=== PATIENT | female | born 1985 | race Caucasian/White ===

== ENCOUNTER 2017-04-11 21:10 | Emergency (ER) | payer BC, OTHER ==
[~2017-04-11] VITALS: Ht 160 cm; Wt 68.0 kg
[~2017-04-11 21:10] MED LIST: PRENAT PO
[2017-04-11 21:14] VITALS: Ht 160 cm; Wt 68.0 kg
[2017-04-11] MEDS ORDERED: BENZ100C70 PO (22:00)
[2017-04-11] MEDS ORDERED: D-ME473S18 PO (22:00)
--- NOTE | 2017-04-11 23:41 | ERD ---
ER Documentation Chief Complaint Date/Time DATE: 04/11/17 TIME: 23:39 Chief Complaint cough x 4 days, chest congestion, sore throat HPI 31-year-old female coming in complaining of dry cough for the last 4 days. Denies fever. Has been taking a [place] Citizen medicine for cough. Denies alleviation of symptoms. Denies runny nose. Denies sore throat. Denies hemoptysis. Denies pleuritic chest pain. Positive sick contacts, daughter has similar symptoms. NKDA Medical problems: Denies ROS All systems reviewed and are negative except as per history of present illness. Medications Home Meds Active Scripts Dextromethorphan Hb-Promethazine Hcl (Promethazine DM Syrup) 473 Ml Syrup, 5 ML PO Q6H Y for COUGH, #4 OZ Prov:JOANNA SAGE PA-C 04/11/17 Benzonatate* (Tessalon Perle*) 100 Mg Capsule, 100 MG PO Q8H Y for COUGH, #30 CAP Prov:JOANNA SAGE PA-C 04/11/17 Reported Medications Multivit/Min/Fol Ac/Iron/Pren* ( S*) 1 Tab Tab, 1 TAB PO DAILY, TAB 09/23/14 Allergies Allergies: Coded Allergies: No Known Drug Allergy (Verified Allergy, Unknown, 09/23/14) PMhx/Soc Medical and Surgical Hx: pt denies Medical Hx, pt denies Surgical Hx Hx Alcohol Use: No Hx Substance Use: No Hx Tobacco Use: No Smoking Status: Never smoker Physical Exam Vitals Vital Signs Date Time Temp Pulse Resp B/P Pulse Ox O2 Delivery O2 Flow Rate FiO2 04/11/17 21:14 98.3 109 20 136/82 98 Physical Exam GENERAL: The patient is well-appearing, well-nourished, in no acute distress HEENT: Atraumatic. Conjunctivae are pink. Pupils equal, round, and reactive to light. There is no scleral icterus. Tympanic membranes clear bilaterally. Oropharynx clear. No nystagmus or photophobia. NECK: C-spine is soft and supple. There is no meningismus. There is no cervical lymphadenopathy. No JVD. No bruits. No goiter. CHEST: Clear to auscultation bilaterally. There are no rales, wheezes or rhonchi. HEART: Regular rate and rhythm. No murmurs, clicks, rubs or gallops. No S3 or S4. Procedures/MDM MDM: 31-year-old female coming in complaining of cough. I have low suspicion for pneumonia. Patient's vital signs are stable patient exam is not concerning. I do not feel there is indication for imaging at this time. I have low suspicion for PE. I have low suspicion for TB or other pulmonary complication. Patient's cough is likely associated with viral etiology. Patient will be given a cough medication. I did not feel there is indication for antibiotics. Departure Diagnosis: Primary Impression: Cough Condition: Stable Patient Instructions: Cough, Chronic, Uncertain Cause, (Adult) Referrals: NOHEMY KEY MD (PCP) Additional Instructions: FOLLOW UP WITH YOUR PRIMARY CARE PHYSICIAN TOMORROW.Return to this facility if you are not improving as expected. JOANNA SAGE PA-C Apr 11, 2017 23:41
== END 2017-04-11 22:56 | disposition home or self-care (01) ==
LOC: FTE 21:10
DX: R05 Cough (principal)
CPT/HCPCS: 99284